=== PATIENT | male | born 1995 | race Caucasian/White ===

== ENCOUNTER 2020-08-05 21:38 | Emergency (ER) | payer BC ==
[~2020-08-05] VITALS: Ht 170.2 cm; Wt 100.0 kg
[2020-08-05] MEDS ORDERED: LABETALOL 5MG/ML SYR 20 MG/4 ML SYRINGE IV ONE (23:30)
[2020-08-05 23:37] LABS: CLARITY URINE CLEAR (CLEAR); COLOR URINE YELLOW (YELLOW); KETONES URINE TRACE (NEGATIVE); LEUKOCYTE ESTERASE URINE NEGATIVE (NEGATIVE); NITRITE URINE NEGATIVE (NEGATIVE); OCCULT BLOOD URINE NEGATIVE (NEGATIVE); PH URINE 6.5 (4.5-8.0); PROTEIN URINE 2+ (NEGATIVE); SPECIFIC GRAVITY URINE 1.017 (1.005-1.030)
[2020-08-06 00:09] LABS: EOSINOPHILS % 0.2 % (0.0-5.0); HEMATOCRIT. 45.9 % (42.0-52.0); HEMOGLOBIN. 15.7 g/dL (14.0-18.0); LYMPHOCYTES % 15.8 % (20.0-50.0); MEAN CORPUSCULAR HEMOGLOBIN 30.4 pg (28.0-32.0); MEAN CORPUSCULAR VOLUME 89.1 fL (80.0-94.0); MEAN PLATELET VOLUME 9.9 fl (7.4-10.4); NEUTROPHILS % 75.5 % (40.0-76.0); PLATELET 278 x1000/uL (130-400); RED BLOOD CELL COUNT 5.15 mill/uL (4.7-6.1); RED CELL DISTRIBUTION WIDTH 13.2 % (11.6-14.6)
[2020-08-06 00:10] LABS: BASOPHILS % 0.5 % (0.0-2.0)
[2020-08-06 00:56] LABS: CHLORIDE 106 mEq/L (98-107)
[2020-08-06 03:00] VITALS: BP 141/71
== END 2020-08-06 03:00 | disposition home or self-care (01) ==
LOC: ER 21:38
DX: I10 Essential (primary) hypertension (principal); Z91.14 Patient's other noncompliance with medication regimen
CPT/HCPCS: 36415; 76770; 80053; 81003; 85025; 93005; 99285; J3490